=== PATIENT | male | born 1955 | race Caucasian/White ===

== ENCOUNTER 2017-06-03 12:36 | Day surgery (SDC) | payer BC, MEDICAID ==
[2017-06-03] VITALS (14 sets, daily range): BP systolic 110–134; BP diastolic 82–93
[~2017-06-03] VITALS: Ht 182.9 cm; Wt 90.0 kg
[2017-06-03] MEDS ORDERED: APIX5TAB3 PO (13:03)
[2017-06-03] MEDS ORDERED: FLEC100T2 PO (13:03)
[2017-06-03] MEDS ORDERED: normal saline 1000ml 1,000 ML IV SCH (13:15)
[2017-06-03] MEDS ORDERED: fentaNYL/PF 50MCG/1 ML 2ML syringe IV ONE (13:15)
[2017-06-03] MEDS ORDERED: MIDAZolam 5mg/ml 2ml vial IV ONE (13:15)
== END 2017-06-03 15:30 | disposition home or self-care (01) ==
LOC: SSTAY O 12:36
PROVIDERS: ATTEND Internal Medicine Interventional Cardiology
DX: I48.92 Unspecified atrial flutter (principal); I45.10 Unspecified right bundle-branch block; I95.9 Hypotension, unspecified; K22.70 Barrett's esophagus without dysplasia; E78.00 Pure hypercholesterolemia, unspecified; J43.9 Emphysema, unspecified; Z87.11 Personal history of peptic ulcer disease; Z98.890 Other specified postprocedural states; Z98.52 Vasectomy status; Z79.01 Long term (current) use of anticoagulants; Z87.891 Personal history of nicotine dependence
CPT/HCPCS: 92960; 93005; J2250; J3010; J7030; A4620